=== PATIENT | female | born 1965 | race Caucasian/White ===

== ENCOUNTER 2021-11-15 08:02 | Outpatient (CLI) | payer BC, MEDICAID, SELFPAY ==
--- NOTE | 2021-11-15 10:27 | ECG_ITS ---
[facility] Test Date: 2021-11-15 Pat Name: Larisa Baker Department: Room: Gender: Female Principal Automation Engineer: : 1965 Requested By: Laurel Cook Order Number: [id number] Verdugo MD: Viri Roque M.D. Interpretive Statements NAME OF STUDY: EXERCISE SESTAMIBI STRESS TEST INDICATION: PRE-OP CLEARANCE/CHEST PRESSURE Baseline blood pressure of 128/90 mm Hg, heart rate 70 beats per minute. EKG showed normal sinus rhythm, normal axis with normal ST-Ts. The patient exercised for 5 minutes 44 seconds on a standard Raudel protocol. Patient attained a maximum heart rate of 154 beats per minute(92% of the maximum predicted heart rate) with a blood pressure at the peak exercise of 181/95 mm Hg. The EKG at the peak exercise revealed sinus tachycardia with no significant ST-T wave changes. Patient did not have any chest pain or any significant arrhythmis with the exercise During the recovery phase, there were no new changes. Blood pressure at the end of the recovery phase was 172/74 mm Hg with a heart rate of 95 beats per minute. CONCLUSION: 1. Normal EKG response to treadmill exercise. 2. No exercise-induced chest pain or cardiac arrhythmia. 3. Good exercise tolerance, attained a maximum of 7 METs. Maximum VO2 of 24.5 mL/kg/min. 4. Baseline normal blood pressure with normal response to exercise. 5. Perfusion scan will be documented separately. Electronically Signed On 11-16-2021 14:31:33 CDT by Viri Roque M.D. [id number]
--- NOTE | 2021-11-15 10:28 | NMCV_ITS ---
NM roxy perf SPECT r/s* [id number] Larisa Baker Age: 56 Gender: F : 1965 Exam Date: 11/15/2021 10:28 Ordering Phys: Laurel Cook Technologist: MARYANN Aguilar Exam Location: [facility] Indications: CHEST PAIN STRESS TEST [facility] IMAGE PROTOCOL Rest/Stress 1 Exercise Day Radiopharmaceutical Dose (mCi) Administration Site Administered by Rest: Tc-99m 10.7 IV MARYANN Goodman Sestamibi Stress:Tc-99m 32.6 IV MARYANN Goodman Sestamiranda Rest: 15-Nov-2021 60 Discovery 630 Stress: 15-Nov-2021 15 Discovery 630 Radiopharmaceutical was injected at 86 % maximum heart rate. Images obtained in supine and prone position. SPECT RESULTS Technical Quality: Excellent Raw Data Analysis: Breast attenuation Image Corrections: No attenuation or motion correction applied Summed Stress Score: 3 Summed Rest Score: 0 Summed Difference Score: 3 PERFUSION FINDINGS Small sized perfusion normality of mild severity of mid to apical inferior wall on supine stress images with improved tracer uptake on prone stress images. This is suggestive of attenuation artifact. FUNCTIONAL RESULTS (calculated via Gated SPECT) Stress Image LV EF (%): 83 Stress EDV (mL):82 TID: 0.62 Stress ESV (mL):14 FUNCTIONAL FINDINGS: The left ventricle is normal in size. Transient Ischemia Dilatation of 0.62. The left ventricular ejection fraction is hyperdynamic with a value of 83%. There is hyperdynamic left ventricular wall thickening. Normal end-diastolic end-systolic volumes. IMPRESSIONS 1. Myocardial perfusion imaging is normal. 2. Overall left ventricular systolic function is normal without regional wall motion abnormalities. 3. The left ventricular ejection fraction is hyperdynamic with a value of 83%. 4. Normal EKG response to treadmill exercise. Good exercise capacity (7 METs). Refer to separate report for details. 5. No prior similar studies to compare. Viri Roque MD (Electronically Signed) Final Date: 16 November 2021 14:32 S
[2021-11-15 10:29] VITALS: BMI 49.6
[2021-11-15 11:22] VITALS: BP 172/76; PULSE 95
== END 2021-11-15 08:03 | disposition home or self-care (01) ==
LOC: RAD 08:04 → CDL 08:57
PROVIDERS: Visit Provider Registered Nurse
DX: R07.9 Chest pain, unspecified (principal)
CPT/HCPCS: 78452; 93017; A9500

== ENCOUNTER → 2021-12-11 16:22 | Outpatient (BNVA) | payer BC, MEDICAID, SELFPAY | PROVIDERS: Visit Provider Obstetrics & Gynecology | DX: A63.0 Anogenital (venereal) warts (principal) | CPT/HCPCS: 88305 ==

== ENCOUNTER → 2021-12-12 09:07 | Outpatient (BNVA) | payer BC, MEDICAID, SELFPAY | PROVIDERS: PCP Registered Nurse; Visit Provider Surgery | DX: K43.9 Ventral hernia without obstruction or gangrene (principal); Z12.11 Encounter for screening for malignant neoplasm of colon; Z68.42 Body mass index [BMI] 45.0-49.9, adult | CPT/HCPCS: 99203 ==

== ENCOUNTER 2021-12-21 10:05 | Outpatient (CLI) | payer BC, MEDICAID, SELFPAY ==
--- NOTE | 2021-12-21 10:14 | MM_ITS ---
WS: [id number] BILATERAL SCREENING DIGITAL BREAST TOMOSYNTHESIS MAMMOGRAM WITH CAD HISTORY: Z12.39 - Encounter for other screening for malignant neoplasm. COMPARISON: None available. Bilateral CC and MLO views with tomosynthesis and synthetic mammography submitted. Computer aided det ection analyzed. Breast composition: The breasts are almost entirely fatty. No suspicious masses, microcalcifications or architectural distortion. MM/[place] [id number] IMPRESSION: BI-RADS: 1-Negative FOLLOW UP: 1 Year Follow-up
== END 2021-12-21 10:06 | disposition home or self-care (01) ==
LOC: RAD 10:06
PROVIDERS: PCP Registered Nurse; Visit Provider Obstetrics & Gynecology
DX: Z12.31 Encounter for screening mammogram for malignant neoplasm of breast (principal)
CPT/HCPCS: 77063; 77067

== ENCOUNTER 2022-03-29 07:51 | Day surgery (SDC) | payer BC, MEDICAID, SELFPAY ==
[2022-03-28 08:14] VITALS: BMI 48.0
[2022-03-29 08:09] VITALS: BP 138/100; PULSE 83; RESP 18; TEMP 36.4; O2SAT 94
[2022-03-29] MEDS: sodium chloride 0.9% 1,000 ML 30 ML IV ×2 (08:26→09:46)
--- NOTE | 2022-03-29 08:45 | P.ANESASSM_ITS ---
Pre-Anesthetic Assessment Height/Weight: Height 1.63 m Weight 127.006 kg Temp Pulse Resp BP Pulse Ox O2 Del Method 97.5 F L 83 18 138/100 94 03/29/22 08:09 03/29/22 08:09 03/29/22 08:09 03/29/22 08:09 03/29/22 08:09 03/29/22 08:09 Preop Diagnosis: Screening colonoscopy Operation Date: 03/01/22 08:15 Proposed Procedures p Colonoscopy 55230/Z12.11(Not Applicable) - Jose Phillips MD Operation Date: 03/29/22 09:30 Proposed Procedures p Colonoscopy 83485/z12.11(Not Applicable) - Jose Phillips MD Familial anesthetic complications: None Was Beta Elyssa taken within 24 hours: N/A Was Clonidine taken within 24 hours: N/A Last intake: Intake Last Liquid Date 03/28/22 Last Liquid Time 23:30 Last Solid Date 03/28/22 Last Solid Time 08:00 Social No alcohol and No tobacco (h/o smoking) Exam alert, oriented x 3 and regular rate & rhythm Airway Submandibular: within normal limits Cervical ROM: within normal limits Mallampati: Class II Dentition: false CV/HEM Hypertension Metabolic Morbid Obesity PCOS Neuropsych Anxiety and Depression Anesthetic Plan ASA status: 3 Anesthesia: MAC Medications/Allergies Home Medications Medication Instructions Recorded Confirmed Last Taken Type bupropion HCl 150 mg 24 hr tablet, 150 mg PO QAM 11/05/21 03/29/22 03/28/22 History extended release hydrochlorothiazide 25 mg tablet 25 mg PO DAILY 11/05/21 03/29/22 03/28/22 H istory metformin 500 mg tablet 500 mg PO BID 11/05/21 03/29/22 03/28/22 History sertraline 25 mg tablet (Zoloft) 25 mg PO DAILY 11/05/21 03/29/22 03/28/22 History ibuprofen 800 mg tablet 800 mg PO Q8H PRN Pain 11/14/21 03/29/22 03/22/22 History bupropion HCl 150 mg tablet,12 hr 300 mg PO BEDTIME 03/28/22 03/29/22 03/27/22 History sustained-release potassium chloride 10 mEq 10 meq PO DAILY 03/29/22 03/29/22 03/28/22 History tablet,extended release Allergies Allergy/AdvReac Type Severity Reaction Status Date / Time No Known Allergies Allergy Verified 03/29/22 08:05 Current Medications Generic Name Dose Route Start Last Admin Trade Name Hugo PRN Reason Stop Dose Admin Sodium Chloride 1,000 mls @ 30 mls/hr 03/29/22 08:00 03/29/22 08:26 Sodium Chloride 0.9% IV 30 mls/hr .Q24H ELLY Administration PFSH Anesthesia Medical History Depression Diagnosed in 2020 and is on medication managed by her primary care provider. Does not have a therapist or psychiatrist Diabetes Borderline diagnosed in 2020--is on Metformin Hypertension Diagnosed in 2016 and is on medication managed by PMD. 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 Performed by Dr. Whatley. History of D&C 1986--for bleeding. Cone biopsy done at same time History of fusion of cervical spine 2003 for disc problems History of tubal ligation [address] Orellana via umbilicus Family History Mother Diabetes Hypertension Denies family history of Colon cancer Ovarian cancer Heart disease Hyperlipidemia Breast cancer Uterine cancer Thyroid condition Stroke Data Anesthesia Cardiac Studies: Sestamibi Stress Test (Cardiology) 11/15
--- NOTE | 2022-03-29 09:49 | P.HP_ITS ---
Same Day Surgery H&P Indication for Procedure/HPI DATE OF PROCEDURE: March 29, 2022 CHIEF COMPLAINT/INDICATIONFOR SURGICAL PROCEDURE: Screening colonoscopy PREOP DIAGNOSIS: Screening colonoscopy PLANNED PROCEDURE: Operation Date: 03/01/22 08:15 Proposed Procedures p Colonoscopy 15671/Z12.11(Not Applicable) - Jose Phillips MD Operation Date: 03/29/22 09:30 Proposed Procedures p Colonoscopy 05224/z12.11(Not Applicable) - Jose Phillips MD Patient comes today for screening colonoscopy is being arranged for. ROS All systems have been reviewed negative except as for the above or per problem list. Medications/Allergies* Home Medications Medication Instructions Recorded Confirmed Type bupropion HCl 150 mg 24 hr tablet, 150 mg PO QAM 11/05/21 03/29/22 History extended release hydrochlorothiazide 25 mg tablet 25 mg PO DAILY 11/05/21 03/29/22 History metformin 500 mg tablet 500 mg PO BID 11/05/21 03/29/22 History sertraline 25 mg tablet (Zoloft) 25 mg PO DAILY 11/05/21 03/29/22 History ibuprofen 800 mg tablet 800 mg PO Q8H PRN Pain 11/14/21 03/29/22 History bupropion HCl 150 mg tablet,12 hr 300 mg PO BEDTIME 03/28/22 03/29/22 History sustained-release potassium chloride 10 mEq 10 meq PO DAILY 03/29/22 03/29/22 History tablet,extended release Allergies/Adverse Reactions Allergy/AdvReac Type Severity Reaction Status Date / Time No Known Allergies Allergy Verified 03/29/22 09:49 Current Medications: Generic Name Dose Route Start Last Admin Trade Name Freq PRN Reason Stop Dose Admin Sodium Chloride 1,000 mls @ 30 mls/hr 03/29/22 08:00 03/29/22 09:46 Sodium Chloride 0.9% IV 03/30/22 07:59 30 mls/hr .Q24H ELLY Administration Sodium Chloride 1,000 mls @ 30 mls/hr 03/29/22 08:00 03/29/22 09:45 Sodium Chloride 0.9% IV Infused .Q24H ELLY Infusion Pertinent History/Comorbid Conditions* Medical History (Updated 12/24/21 @ 18:29 by Blade Ray MD) Depression Diagnosed in 2020 and is on medication managed by her primary care provider. Does not have a therapist or psychiatrist Diabetes Borderline diagnosed in 2020--is on Metformin Hypertension Diagnosed in 2017 and is on medication managed by PMD. 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 Performed by Dr. Whatley. History of D&C 1986--for bleeding. Cone biopsy done at same time History of fusion of cervical spine 2003 for disc problems History of tubal ligation [address] Orellana via umbilicus Family History (Updated 11/14/21 @ 13:51 by Kaylen Bran RN) Diabetes Mother Hypertension Mother Denies family history of Colon cancer Ovarian cancer Heart disease Hyperlipidemia Breast cancer Uterine cancer Thyroid condition Stroke Pertinent Exam Findings alert, oriented x 3, regular rate & rhythm and procedure specific exam findings (Abdominal examination nontender nondistended soft. Stable hernia exam) Recommendations Surgery/Procedure today (Colonoscopy with possible biopsy) Coding Level of Care Code Acute Primary Special Educator for Alessandro Diaz
[2022-03-29 10:17] VITALS: BP 129/68; PULSE 72; RESP 18; TEMP 36.1; O2SAT 98
[2022-03-29 10:25] VITALS: BP 150/104; PULSE 64; RESP 18; O2SAT 98
--- NOTE | 2022-03-29 10:48 | ANE.PACU2 ---
Inpatient post-anesthesia follow up: Airway intact: Yes Vital signs: Temperature 97 F Pulse Rate 64 Respiratory Rate 18 Blood Pressure 150/104 Pulse Oximetry 98 Oxygen Delivery Me thod Room Air Oxygen Flow Rate Fraction of Inspir ed Oxygen Hydration adequate: Yes Nausea and vomiting: No Pain level: 1 Mental status: Baseline
== END 2022-03-29 10:40 | disposition home or self-care (01) ==
PROVIDERS: PCP Registered Nurse; Visit Provider Surgery
PROC: 0DJD8ZZ Inspection of Lower Intestinal Tract, Via Natural or Artificial Opening Endoscopic (ICD-10-PCS; CPT 45378; principal; 2022-03-29 09:30)
DX: Z12.11 Encounter for screening for malignant neoplasm of colon (principal); D12.8 Benign neoplasm of rectum; K57.30 Diverticulosis of large intestine without perforation or abscess without bleeding; F32.A Depression, unspecified; E11.9 Type 2 diabetes mellitus without complications; I10 Essential (primary) hypertension; Z79.84 Long term (current) use of oral hypoglycemic drugs; E66.01 Morbid (severe) obesity due to excess calories; Z68.42 Body mass index [BMI] 45.0-49.9, adult; E28.2 Polycystic ovarian syndrome; F41.9 Anxiety disorder, unspecified
CPT/HCPCS: 45385; 88305; J2704; J7030

== ENCOUNTER → 2022-04-03 11:15 | Outpatient (BNVA) | payer BC, MEDICAID, SELFPAY | PROVIDERS: PCP Registered Nurse; Visit Provider Surgery | DX: K62.0 Anal polyp (principal); K57.31 Diverticulosis of large intestine without perforation or abscess with bleeding; K76.0 Fatty (change of) liver, not elsewhere classified; K80.20 Calculus of gallbladder without cholecystitis without obstruction | CPT/HCPCS: 99213 ==

== ENCOUNTER 2022-05-03 13:09 | Outpatient (CLI) | payer BC, MEDICAID, SELFPAY ==
[2022-05-03] MEDS: iohexol 350 mg/mL 100 mL Btl IV (14:32)
[2022-05-03] MEDS: iohexol 350 mg/mL 100 mL Btl PO (14:32)
--- NOTE | 2022-05-03 17:00 | CTR_ITS ---
PROCEDURE INFORMATION: Exam: CT Abdomen And Pelvis With Contrast Exam date and time: 05/03/2022 2:22 PM Age: 57 years old Clinical indication: Condition or disease; Intestinal condition; Other: Ventral hernia; Prior surgery; Surgery type: Tubal; Additional info: Ventral hernia, iv and oral TECHNIQUE: Imaging protocol: Computed tomography of the abdomen and pelvis with contrast. Radiation optimization: All CT scans at this facility use at least one of these dose optimization techniques: automated exposure control; mA and/or kV adjustment per patient size (includes targeted exams where dose is matched to clinical indication); or iterative reconstruction. Contrast material: OMNI 350; Contrast volume: 95 ml; Contrast route: INTRAVENOUS (IV); COMPARISON: No relevant prior studies available. RADIATION DOSE METRICS: Total DLP (mGy-cm): 1267.55 FINDINGS: Lungs: No acute findings within the included lung bases. Liver: Normal. No mass. Gallbladder and bile ducts: Normal. No calcified stones. No ductal dilation. Pancreas: Normal. No ductal dilation. Spleen: Normal. No splenomegaly. Adrenal glands: Normal. No mass. Kidneys and ureters: No hydronephrosis. No mass. Stomach and bowel: No bowel obstruction. No inflammatory changes. Scattered left colon diverticula. Appendix: No evidence of appendicitis. Intraperitoneal space: No free air. No significant fluid collection. Vasculature: Unremarkable. No abdominal aortic aneurysm. Lymph nodes: Unremarkable. No enlarged lymph nodes. Urinary bladder: Bladder partially filled. No stones. Reproductive: Unremarkable as visualized. Bones/joints: Lumbar degenerative changes. Soft tissues: Fat containing umbilical hernia. Defect measures 10 mm in diameter. Hernia sac measures approximately 5.5 x 5.0 x 7[address]/CT abdomen pelvis w con* [id number] IMPRESSION: 1. No acute findings. 2. Fat containing umbilical hernia. 3. Diverticulosis with no evidence of active diverticulitis.
== END 2022-05-03 13:10 | disposition home or self-care (01) ==
LOC: RAD 13:10
PROVIDERS: PCP Registered Nurse; Visit Provider Surgery
DX: K43.9 Ventral hernia without obstruction or gangrene (principal); K42.9 Umbilical hernia without obstruction or gangrene; K57.30 Diverticulosis of large intestine without perforation or abscess without bleeding
CPT/HCPCS: 74177

== ENCOUNTER 2022-12-23 08:34 | Outpatient (CLI) | payer BC, MEDICAID, SELFPAY ==
--- NOTE | 2022-12-23 08:57 | MM_ITS ---
WS: [id number] SCREENING DIGITAL TOMOSYNTHESIS MAMMOGRAM WITH CAD HISTORY: SCREENING COMPARISON: 12/21/2021 Bilateral CC and MLO with tomosynthesis views submitted. Synthetic mammography reviewed. Computer aid ed detection analyzed. Breast composition: The breasts are almost entirely fatty. No suspicious masses, microcalcifications or architectural distortion. MM/[place] [id number] IMPRESSION: BI-RADS: 1-Negative FOLLOW UP: 1 Year Follow-up
== END 2022-12-23 08:35 | disposition home or self-care (01) ==
LOC: RAD 08:36
PROVIDERS: PCP Registered Nurse; Visit Provider Registered Nurse
DX: Z12.31 Encounter for screening mammogram for malignant neoplasm of breast (principal)
CPT/HCPCS: 77063; 77067

== ENCOUNTER 2023-12-26 08:47 | Outpatient (CLI) | payer BC, MEDICAID, SELFPAY ==
--- NOTE | 2023-12-26 08:52 | MM_ITS ---
WS: [id number] BILATERAL SCREENING DIGITAL TOMOSYNTHESIS MAMMOGRAM WITH CAD HISTORY: SCREENING COMPARISON: 12/23/2022, 12/21/2021 Bilateral CC and MLO views with tomosynthesis and synthetic mammography submitted. Computer aided det ection analyzed. Breast composition: The breasts are almost entirely fatty. No suspicious masses, microcalcifications or architectural distortion. MM/[place] [id number] IMPRESSION: BI-RADS: 1-Negative FOLLOW UP: 1 Year Follow-up
== END 2023-12-26 08:48 | disposition home or self-care (01) ==
LOC: RAD 08:47
PROVIDERS: PCP Registered Nurse; Visit Provider Registered Nurse
DX: Z12.31 Encounter for screening mammogram for malignant neoplasm of breast (principal)
CPT/HCPCS: 77063; 77067

== ENCOUNTER 2024-12-27 10:21 | Outpatient (CLI) | payer BC, MEDICAID, SELFPAY ==
--- NOTE | 2024-12-27 10:23 | MM_ITS ---
WS: [id number] BILATERAL SCREENING DIGITAL TOMOSYNTHESIS MAMMOGRAM WITH CAD HISTORY: SCREENING COMPARISON: 12/26/2023, 12/23/2022, 12/21/2021 Bilateral CC and MLO views with tomosynthesis and synthetic mammography submitted. Computer aided detection analyzed. Breast composition: The breasts are almost entirely fatty. No suspicious masses, microcalcifications or architectural distortion. MM/MM scr BI tomosynthesis [id number] IMPRESSION: BI-RADS: 1 - Negative. FOLLOW UP: 1 Year Follow-up
== END 2024-12-27 10:22 | disposition home or self-care (01) ==
PROVIDERS: PCP Registered Nurse; Visit Provider Registered Nurse
DX: Z12.31 Encounter for screening mammogram for malignant neoplasm of breast (principal); R92.313 Mammographic fatty tissue density, bilateral breasts
CPT/HCPCS: 77063; 77067